=== PATIENT | male | born 1960 | race Hispanic/Latino ===

== ENCOUNTER 2018-03-01 06:10 | Inpatient (IN) | payer OTHER ==
[2018-02-24 08:09] VITALS: BMI 41.3
[2018-03-01 07:18] LABS: HEMOGLOBIN 13.7 g/dL (12.0-18.0); MEAN CELL VOLUME 89.2 fl (80.0-94.0); MEAN CORPUSCULAR HEMOGLOBIN 30.2 pg (27.0-31.0); MEAN CORPUSCULAR HGB CONC 33.8 g/dL (33.0-37.0); RBC 4.53 Mil/uL (4.40-5.90); RED CELL DISTRIBUTION WIDTH 13.7 % (11.5-14.5); WHITE BLOOD COUNT 8.7 K/uL (4.8-10.8)
[2018-03-01] MEDS ORDERED: Rocuronium 10 mg/ml (5 ml) ONE ×2 (07:42→09:37)
[2018-03-01] MEDS ORDERED: Lidocaine 4% (Laryng-O-Jet) Kit MM ONE (07:42)
[2018-03-01] MEDS ORDERED: Propofol 10 mg/ml Inj (20 ML) ONE (07:42)
[2018-03-01] MEDS ORDERED: Midazolam 2 MG/2 ML VIAL ONE (07:42)
[2018-03-01] MEDS ORDERED: Neostigmine 1:1000 (1 mg/ml) Inj ONE (07:42)
[2018-03-01] MEDS ORDERED: Succinylcholine 200 mg/10 ml Inj IV ONE (07:42)
[2018-03-01] MEDS ORDERED: Lidocaine 1% 5ml Abboject ONE (07:43)
[2018-03-01] MEDS ORDERED: Sodium Chloride 0.9% 20 ML IV ONE (08:05)
[2018-03-01] MEDS ORDERED: EPINEPHrine 1 mg/ml (1:1000) Inj ONE (08:05)
[2018-03-01] MEDS ORDERED: ceFAZolin IV 1 gm in Dextrose 2 GM/100 ML BAG IVPB ONE (08:05)
[2018-03-01] MEDS ORDERED: Bupivacaine HCl 0.5% PF (30 ml) Inj ONE (08:12)
[2018-03-01] MEDS ORDERED: GELATIN SPONGE,ABSORB/PORCINE 1 EACH SPONGE TP ONE (08:13)
[2018-03-01] MEDS ORDERED: Bacitracin Ointment 30 GM TUBE ONE (08:13)
[2018-03-01] MEDS ORDERED: Thrombin Topical 5,000 Int Units Spray Kit ONE (08:13)
[2018-03-01] MEDS ORDERED: Lactated Ringer's 1,000 ML IV ONE ×3 (08:29→10:05)
[2018-03-01] MEDS ORDERED: oxyCODONE 10 mg ER Tab (oxyCONTIN) PO ONE ×2 (08:29→09:00)
[2018-03-01] MEDS ORDERED: Acetaminophen IV IVPB ONE (08:48)
[2018-03-01 08:52] LABS: BLOOD UREA NITROGEN 16 mg/dl (9-20); GFR NON-AFRICAN AMERICAN > 60
[2018-03-01] MEDS ORDERED: Phenylephrine 10 mg/ml Inj ONE (09:43)
[2018-03-01] MEDS ORDERED: Sodium Chloride 0.9% 10 ML IV ONE (10:09)
[2018-03-01] MEDS ORDERED: ePHEDrine 50 mg/ml Inj ONE (10:09)
[2018-03-01] MEDS ORDERED: Morphine 1 mg/ml preservative-free Inj(Duramorph) ONE (10:53)
[2018-03-01] MEDS ORDERED: Morphine 1 mg/ml preservative-free Inj(Duramorph) IV ONE (10:59)
[2018-03-01] MEDS ORDERED: EPINEPHrine 1 mg/ml (1:1000) Inj IV ONE (10:59)
[2018-03-01] MEDS ORDERED: Sodium Chloride 0.9% Inj (10mL) IV ONE (10:59)
[2018-03-01] MEDS ORDERED: Bupivacaine 0.5% Inj(30mL) IJ ONE (10:59)
[2018-03-01] MEDS ORDERED: HYDROmorphone 0.5 mg/0.5 ml ISec IVP PRN (12:07)
--- NOTE | 2018-03-01 12:09 | PCM.SURG1 ---
Surgeon's Initial Post Op Note - Surgeon's Notes Surgeon: Harvey Hartman MD Forensic Science Examiner: Debora Jose PA-C; Ronnie Swift PA-C Type of Anesthesia: General Endo Pre-Operative Diagnosis: Right knee advanced OA Operative Findings: see op report Post-Operative Diagnosis: same as pre-op dx Operation Performed: RTKR Specimen/Specimens Removed: right knee bone and soft tissue Estimated Blood Loss: EBL {In ML}: 50 Date of Surgery/Procedure: 03/01/18 Time of Surgery/Procedure: 10:30
[2018-03-01] MEDS: Lactated Ringer's 1,000 ML IV SCH ×3 (14:05→23:00)
--- NOTE | 2018-03-01 14:47 | RAD ---
Date of service: 03/01/2018 PROCEDURE: Right Knee Radiographs. HISTORY: pre-op COMPARISON: Right knee radiographs 08/04/2010. FINDINGS: BONES: Patient is now seen to be status post right total knee replacement with hardware in good apparent position at the distal femur and proximal tibia. No acute fracture, subluxation or dislocation identified. Postoperative changes seen throughout the soft tissues a predominately anteriorly and laterally. Skin mariana are noted anteriorly. No acute fracture, subluxation or dislocation identified. JOINTS: As above. JOINT EFFUSION: As above. OTHER FINDINGS: None. IMPRESSION: Postoperative changes are identified in soft tissues locally surrounding the knee status post right total knee replacement as discussed above.
[2018-03-01] MEDS ORDERED: ceFAZolin IV 1 gm in Dextrose 1 GM/50 ML BAG IVPB ONE ×2 (15:00→21:00)
[2018-03-01] MEDS: oxyCODONE 10 mg ER Tab (oxyCONTIN) PO SCH (20:24)
[2018-03-01] MEDS: oxyCODONE 5 mg Immediate Release Tab PO PRN (21:54)
--- NOTE | 2018-03-01 22:28 | OP ---
PROCEDURE DATE: 03/01/2018 PREOPERATIVE DIAGNOSIS: Right knee osteoarthritis. POSTOPERATIVE DIAGNOSIS: Right knee osteoarthritis. PROCEDURE: Right total knee replacement. IMPLANTS SIZE: [employer] size 4 femur, size 4 tibial baseplate, 11 mm polyethylene insert, 32 mm patella. SURGEON: Harvey Hartman MD FRONT MAN: Debora Jose PA-C TYPE OF ANESTHESIA: General. ESTIMATED BLOOD LOSS: 100 mL. COMPLICATIONS: None. HISTORY: The patient with prolonged history of right knee pain progressively getting worse despite extensive conservative management, which included activity modification, injections, anti-inflammatory modification and physical therapy. X-rays had revealed advanced arthritis. Patient was indicated for total knee replacement due to continued pain and limited mobility. I had a detailed discussion with the patient in the office explaining the nature of the surgery, alternatives of surgery, risks and benefits, rehabilitation protocol and surgical markings. Risks of surgery include but not limited to continued pain, lack of motion, infection, vascular injury, DVT / PE, nerve injury including peroneal nerve dysfunction, reflex sympathetic dystrophy, compartment syndrome, unforeseen medical and/or anesthesia complications, limb loss, and even . The patient expressed an understanding of the risks and possible benefits of the procedure, and is also aware of the alternatives to surgery. DESCRIPTION OF PROCEDURE: On the day of the surgery, the patient was admitted to pre-operative holding area. A laterality sheet was completed confirming the correct operative site. The correct surgical knee was marked in the holding area and informed consent was signed from the patient. Once again, I reviewed the risks and benefits of the surgery with the patient in detail. These risks include but are not limited to continued pain, lack of motion, infection, vascular injury, DVT / PE, nerve injury including peroneal nerve dysfunction, reflex sympathetic dystrophy, symptomatic hardware, need for further procedure and surgeries, instability, iatrogenic fractures, compartment syndrome, unforeseen medical and/or anesthesia complications, limb loss, and even . The patient expressed an understanding of the risks and possible benefits of the procedure, also aware of the alternatives to surgery and signed the informed consent. The patient was transported to the operating room and placed in the supine position, general anesthesia was obtained. Exam under anesthesia revealed effusion trace, range of motion is 0 to 120, stable to varus and valgus stress. A padded tourniquet was applied to patient's operative thigh and appropriate prophylactic antibiotics were given. The operative leg was draped and prepped in standard sterile manner. Timeout was completed, confirming patient's right knee to be the correct operative site. Using an Esmarch, the extremity was exsanguinated and tourniquet was inflated to 350 mmHg. The surgical incision markings were made using patella border, tibial tubercle, patella and quadriceps tendon. Using a 10 blade, a midline incision was made. Skin dissection was taken until the prepatellar fascia was identified and the corners of the patellar tendon were marked for proper closure at the end of the procedure. Using a fresh 10 blade, a medial parapatellar arthrotomy was performed. The knee was exposed in the standard manner. The deep MCL was elevated for exposure, medial and lateral menisci were removed, ACL and PCL were also transected. The tibia was subluxed anteriorly. Planned tibial cut was made with power saw, using extra-medullary guide, perpendicular to mechanical axis of the tibia. After the cut was made, the alignment was also checked and was found to be appropriate. Tibial cut surface was measured with trial base plate and it was noted that size 4 tibial baseplate was provide sufficient coverage without overhang. Tibial component was externally rotated and marked. Next, the knee was placed into 90 degrees of flexion. A drill hole was made within the femoral notch anterior to PCL insertion for placement of intramedullary femoral brandon. Intramedullary femoral brandon was inserted within the femoral canal and planned distal femoral cut was made. After the cut, knee was brought into full extension. Spacer blocks were used to check the extension balancing both in full extension and 30 degrees of flexion. It was found that 11 mm trial spacer block allowed full extension with symmetric varus and valgus balancing. Next we proceed with Patella resurfacing. Patella width was found to 29 mm. Using the free-hand technique the arthritic patella surface was resected. Patella was sized using the guide and it was noted that 32 mm Patella dome button would be appropriate for the patient. Next the size of femoral component was determined using the posterior referencing guide. It was noted that a size 4 femur would be appropriate for this patient without causing any significant notching. A 4 x 1 cutting block was placed and flexion gap balancing was checked. The flexion gap was found to be symmetric to the extension gap. Anterior and posterior condyle, anterior and posterior chamfer cuts were made. Next, appropriate size box cut for femoral component was prepared using the guide. The femoral trial component was impacted onto the distal femur. Appropriate size tibial trial component was also placed on the cut surface of the tibia. Using the drill and punch, keel for tibial implant was prepared. Trial tibial tray was secured onto the tibia using pins. Different size trial polyethylene inserts were secured on to the trial tibial tray to critically assess the following parameters: Full range of motion, extension and flexion gap balancing, mid-flexion stability, anterior and posterior drawer, and patellar tracking. All parameter were found to be satisfactory with 11 mm polyethylene insert. All the trial components were removed. Implants were opened on the back table. Cement was mixed and we proceed with cement fixation of the implants. Tibial tray, femoral component and patellar dome button were secured with cement. Polyethylene insert was secured onto the tibial tray using locking mechanism. The knee was reduced and brought into full extension. Cement was allowed to harden until final component fixation. Knee was taken through the final range of motion for stability testing, and found to be satisfactory. A 60 mL of custom cocktail mixture was injected into posterior capsule, MCL, LCL, quadriceps tendon, and patellar tendon. Wound was copiously irrigated with sterile antibiotic solution using pulse lavage. Arthrotomy was closed using heavy suture and wound was closed in standard manner. Patient was extubated, transferred to stretcher and taken to the recovery room. Post-operative instructions were provided, physical therapy consult was requested along with DVT prophylaxis and appropriate pain medications. During this procedure, I was assisted by Debora Jose PA-C,who assisted in positioning the patient on the operating room table as well as transferring the patient from the operating room table to the recovery room stretcher. In addition, Debora Jose PA-C, assisted me during the actual operative procedure by positioning, protecting critical neurovascular structures, exposure of the joint, and proper positioning of the implants. The presence of Debora Jose PA-C, as my operative training assistant was medically necessary to ensure the utmost safety of the patient in the pre, intra-, and post-operative periods. Harvey Hartman MD
[2018-03-02] MEDS: oxyCODONE 5 mg Immediate Release Tab PO PRN ×3 (03:05→14:29)
[2018-03-02 06:33] LABS: BASO # 0.1 K/uL (0.0-0.2); BASO % 0.6 % (0.0-2.0); EOS # 0.5 K/uL (0.0-0.7); EOS % 4.7 % (0.0-4.0); HEMOGLOBIN 12.1 g/dL (12.0-18.0); LYMPH # 2.6 K/uL (1.0-4.3); LYMPH % 22.2 % (20.0-40.0); MEAN CELL VOLUME 88.2 fl (80.0-94.0); MEAN CORPUSCULAR HEMOGLOBIN 30.2 pg (27.0-31.0); MEAN CORPUSCULAR HGB CONC 34.3 g/dL (33.0-37.0); MEAN PLATELET VOLUME 8.3 fl (7.2-11.7); MONO # 1.2 K/uL (0.0-0.8); MONO % 10.4 % (0.0-10.0); NEUT # 7.2 K/uL (1.8-7.0); NEUT % 62.1 % (50.0-75.0); RBC 4.02 Mil/uL (4.40-5.90); RED CELL DISTRIBUTION WIDTH 13.8 % (11.5-14.5); WHITE BLOOD COUNT 11.5 K/uL (4.8-10.8)
[2018-03-02 06:35] LABS: BLOOD UREA NITROGEN 19 mg/dl (9-20); CALCIUM 8.1 mg/dL (8.4-10.2); GFR NON-AFRICAN AMERICAN > 60
[2018-03-02] MEDS: Enoxaparin 40 mg Syringe SC SCH (08:06)
--- NOTE | 2018-03-02 09:06 | CP.PCM.PN ---
Subjective - Date & Time of Evaluation Date of Evaluation: 03/02/18 Time of Evaluation: 08:30 - Subjective Subjective: 57 yo M s/p RTKR POD#1 Pt seen and examined bedside, comfortable in bed, NAD Pt c/o mild right knee pain Pt denies SOB, chest pain, N/V/D, numbness/tingling RLE Objective - Vital Signs/Intake and Output Vital Signs (last 24 hours): Temp Pulse Resp BP Pulse Ox 98.9 F 75 19 131/79 94 L 03/02/18 08:06 03/02/18 08:06 03/02/18 08:06 03/02/18 08:06 03/02/18 08:06 - Medications Medications: Current Medications Acetaminophen (Tylenol 325mg Tab) 325 mg PO Q4 PRN PRN Reason: pain1-3 Celecoxib (Celebrex) 200 mg PO Q12 [facility] Last Admin: 03/02/18 08:07 Dose: 200 mg Docusate Sodium (Colace) 100 mg PO BID [facility] Last Admin: 03/02/18 08:06 Dose: 100 mg Enoxaparin Sodium (Lovenox) 40 mg SC DAILY [facility] PRN Reason: Protocol Last Admin: 03/02/18 08:06 Dose: 40 mg Home Med (Liraglutide [Victoza 2-Blaine]) 0.6 mg IM DAILY [facility] Lactated Ringer's (Lactated Ringer's) 1,000 mls @ 100 mls/hr IV .Q10H [facility] Last Admin: 03/01/18 23:00 Dose: Not Given Ketorolac Tromethamine (Toradol) 15 mg IVP Q8 [facility] Stop: 03/03/18 18:00 Last Admin: 03/02/18 01:31 Dose: 15 mg Levothyroxine Sodium (Levothroid) 137 mcg PO DAILY@0630 [facility] Last Admin: 03/02/18 06:37 Dose: 137 mcg Metformin HCl (Glucophage) 500 mg PO DAILY [facility] Last Admin: 03/02/18 08:07 Dose: 500 mg Oxycodone HCl (Oxycodone Immediate Release Tab) 5 mg PO Q4 PRN PRN Reason: pain4-6 Last Admin: 03/02/18 06:36 Dose: 5 mg Oxycodone HCl (Oxycontin Extended Release Tab) 20 mg PO Q12 [facility] Stop: 03/05/18 09:01 Telmisartan (Micardis) 40 mg PO DAILY [facility] - Labs Labs: 03/02/18 05:29 03/02/18 05:29 - Constitutional Appears: Well, No Acute Distress - Respiratory Exam Respiratory Exam: Clear to Ausculation Bilateral, NORMAL BREATHING PATTERN - Cardiovascular Exam Cardiovascular Exam: REGULAR RHYTHM, RRR - Extremities Exam Additional comments: RLE: Knee dressing C/D/I Calves soft and nontender b/l N/V intact distally Normal ROM at right ankle, no foot drop DP and PT pulses wnl Assessment and Plan - Assessment and Plan (Free Text) Assessment: 57 yo M s/p RTKR POD#1 Plan: Pain Control DVT ppx- SCD b/l LE; start lovenox today PT/OT- WBAT RLE Incentive Spirometer F/U daily labs Will follow Discussed with Dr. Hartman
[2018-03-02] MEDS: oxyCODONE 10 mg ER Tab (oxyCONTIN) PO SCH ×3 (09:15→20:32)
--- NOTE | 2018-03-02 16:38 | CP.PCM.HP ---
History of Present Illness - History of Present Illness History of Present Illness: pt admitted s/p r tkr. at present,comfortable, no f/c, n/v/d. distal pms intact. bw noted. for ezequiel tomorrow. Present on Admission - Present on Admission Any Indicators Present on Admission: Yes History of Uncontrolled Diabetes: Yes Review of Systems - Musculoskeletal Musculoskeletal: As Per HPI, Arthralgias Past Patient History - Past Medical History & Family History Past Medical History?: Yes - Past Social History Smoking Status: Never Smoked - CARDIAC Hx Cardiac Disorders: Yes Hx Hypertension: Yes - PULMONARY Hx Respiratory Disorders: No - NEUROLOGICAL Hx Neurological Disorder: No - HEENT Hx HEENT Problems: No - RENAL Hx Chronic Kidney Disease: No - ENDOCRINE/METABOLIC Hx Endocrine Disorders: Yes Hx Diabetes Mellitus Type 2: Yes - HEMATOLOGICAL/ONCOLOGICAL Hx Blood Disorders: No - INTEGUMENTARY Hx Dermatological Problems: No - MUSCULOSKELETAL/RHEUMATOLOGICAL Hx Musculoskeletal Disorders: No - GASTROINTESTINAL Hx Gastrointestinal Disorders: No - GENITOURINARY/GYNECOLOGICAL Hx Genitourinary Disorders: No - PSYCHIATRIC Hx Psychophysiologic Disorder: No - SURGICAL HISTORY Hx Surgeries: Yes Hx Herniorrhaphy: Yes - ANESTHESIA Hx Anesthesia: Yes Hx Anesthesia Reactions: No Has any member of the family had a problem w/ anesthesia?: No Meds Allergies/Adverse Reactions: Allergies Allergy/AdvReac Type Severity Reaction Status Date / Time No Known Allergies Allergy Verified 02/24/18 08:08 Physical Exam - Constitutional Appears: Well, Non-toxic, No Acute Distress - Head Exam Head Exam: ATRAUMATIC, NORMAL INSPECTION, NORMOCEPHALIC - Eye Exam Eye Exam: EOMI, Normal appearance, PERRL Pupil Exam: NORMAL ACCOMODATION, PERRL - ENT Exam ENT Exam: Mucous Membranes Moist, Normal Exam - Neck Exam Neck exam: Positive for: Normal Inspection - Respiratory Exam Respiratory Exam: Clear to Auscultation Bilateral, NORMAL BREATHING PATTERN - Cardiovascular Exam Cardiovascular Exam: REGULAR RHYTHM, RRR, +S1, +S2 - GI/Abdominal Exam GI & Abdominal Exam: Normal Bowel Sounds, Soft. absent: Tenderness - Extremities Exam Extremities exam: Positive for: full ROM, normal capillary refill, normal inspection, tenderness, pedal pulses present Additional comments: r knee - Back Exam Back exam: NORMAL INSPECTION - Neurological Exam Neurological exam: Alert, CN II-XII Intact, Normal Gait, Oriented x3, Reflexes Normal - Psychiatric Exam Psychiatric exam: Normal Affect, Normal Mood - Skin Skin Exam: Dry, Intact, Normal Color, Warm Results - Vital Signs Recent Vital Signs: Last Vital Signs Temp 98.4 F 03/02/18 16:22 Pulse 79 03/02/18 16:22 Resp 18 03/02/18 16:22 BP 137/82 03/02/18 16:22 Pulse Ox 94 L 03/02/18 16:22 - Labs Result Diagrams: 03/02/18 05:29 03/02/18 05:29 Labs: Laboratory Results - last 24 hr 03/02/18 03/02/18 05:29 05:29 WBC 11.5 H RBC 4.02 L Hgb 12.1 Hct 35.4 MCV 88.2 MCH 30.2 MCHC 34.3 RDW 13.8 Plt Count 246 MPV 8.3 Neut % (Auto) 62.1 Lymph % (Auto) 22.2 Labette % (Auto) 10.4 H Eos % (Auto) 4.7 H Baso % (Auto) 0.6 Neut # (Auto) 7.2 H Lymph # (Auto) 2.6 Labette # (Auto) 1.2 H Eos # (Auto) 0.5 Baso # (Auto) 0.1 Sodium 134 Potassium 4.2 Chloride 100 Carbon Dioxide 30 Anion Gap 8 L BUN 19 Creatinine 0.9 Est GFR ( Amer) > 60 Est GFR (Non-Af Amer) > 60 Random Glucose 133 H Calcium 8.1 L Assessment & Plan (1) Knee osteoarthritis Assessment and Plan: s/p tkr, pain control ortho pt/ot ezequiel Status: Acute (2) DVT prophylaxis Assessment and Plan: scd adn ae hose ambulation lovenox Status: Acute (3) Diabetes type 2, uncontrolled Assessment and Plan: riss, home meds, fsbg Status: Acute Decision To Admit - Pt Status Changed To: Hospital Disposition Of: Inpatient - Admit Certification Admit to Inpatient:: After my assessment, the patient will require hospitalization for at least two midnights. This is because of the severity of symptoms shown, intensity of services needed, and/or the medical risk in this patient being treated as an outpatient. - . Bed Request Type: Med/Surg Admitting Physician: Toni Stone
[2018-03-02 23:51] VITALS: O2SAT 95
[2018-03-03 07:05] LABS: BASO # 0.1 K/uL (0.0-0.2); BASO % 0.6 % (0.0-2.0); EOS # 0.7 K/uL (0.0-0.7); EOS % 6.8 % (0.0-4.0); HEMOGLOBIN 11.8 g/dL (12.0-18.0); LYMPH # 2.1 K/uL (1.0-4.3); LYMPH % 20.5 % (20.0-40.0); MEAN CELL VOLUME 88.8 fl (80.0-94.0); MEAN CORPUSCULAR HEMOGLOBIN 30.4 pg (27.0-31.0); MEAN CORPUSCULAR HGB CONC 34.2 g/dL (33.0-37.0); MEAN PLATELET VOLUME 8.2 fl (7.2-11.7); MONO # 1.1 K/uL (0.0-0.8); MONO % 11.2 % (0.0-10.0); NEUT # 6.1 K/uL (1.8-7.0); NEUT % 60.9 % (50.0-75.0); RBC 3.87 Mil/uL (4.40-5.90); RED CELL DISTRIBUTION WIDTH 13.9 % (11.5-14.5)
[2018-03-03 07:28] LABS: BLOOD UREA NITROGEN 14 mg/dl (9-20); CALCIUM 8.5 mg/dL (8.4-10.2); GFR NON-AFRICAN AMERICAN > 60
[2018-03-03 07:57] VITALS: BP 137/69; PULSE 71; RESP 19; TEMP 97.8
[2018-03-03] MEDS: Enoxaparin 40 mg Syringe SC SCH (08:12)
[2018-03-03] MEDS: oxyCODONE 10 mg ER Tab (oxyCONTIN) PO SCH (08:15)
--- NOTE | 2018-03-03 08:49 | CP.PCM.PN ---
Subjective - Date & Time of Evaluation Date of Evaluation: 03/03/18 Time of Evaluation: 08:48 - Subjective Subjective: pt doing well. pain controlled. bw noted. for ezequiel today. no f/c, n/v/d. Objective - Vital Signs/Intake and Output Vital Signs (last 24 hours): Temp Pulse Resp BP Pulse Ox 97.8 F 71 19 137/69 95 03/03/18 07:56 03/03/18 08:12 03/03/18 07:56 03/03/18 08:12 03/03/18 07:56 - Medications Medications: Current Medications Acetaminophen (Tylenol 325mg Tab) 325 mg PO Q4 PRN PRN Reason: pain1-3 Celecoxib (Celebrex) 200 mg PO Q12 [facility] Last Admin: 03/03/18 08:12 Dose: 200 mg Docusate Sodium (Colace) 100 mg PO BID [facility] Last Admin: 03/03/18 08:11 Dose: 100 mg Enoxaparin Sodium (Lovenox) 40 mg SC DAILY [facility] PRN Reason: Protocol Last Admin: 03/03/18 08:12 Dose: 40 mg Home Med (Liraglutide [Victoza 2-Blaine]) 0.6 mg IM DAILY [facility] Lactated Ringer's (Lactated Ringer's) 1,000 mls @ 100 mls/hr IV .Q10H [facility] Last Admin: 03/01/18 23:00 Dose: Not Given Ketorolac Tromethamine (Toradol) 15 mg IVP Q8 [facility] Stop: 03/03/18 18:00 Last Admin: 03/03/18 08:13 Dose: 15 mg Levothyroxine Sodium (Levothroid) 137 mcg PO DAILY@0630 [facility] Last Admin: 03/03/18 07:10 Dose: 137 mcg Losartan Potassium (Cozaar) 50 mg PO DAILY [facility] Last Admin: 03/03/18 08:12 Dose: 50 mg Metformin HCl (Glucophage) 500 mg PO DAILY [facility] Last Admin: 03/03/18 08:12 Dose: 500 mg Oxycodone HCl (Oxycodone Immediate Release Tab) 5 mg PO Q4 PRN PRN Reason: pain4-6 Last Admin: 03/02/18 14:29 Dose: 5 mg Oxycodone HCl (Oxycontin Extended Release Tab) 20 mg PO Q12 [facility] Stop: 03/05/18 09:01 Last Admin: 03/03/18 08:15 Dose: 20 mg - Labs Labs: 03/03/18 05:55 03/03/18 05:55 - Constitutional Appears: Well, Non-toxic, No Acute Distress - Head Exam Head Exam: ATRAUMATIC, NORMAL INSPECTION, NORMOCEPHALIC - Eye Exam Eye Exam: EOMI, Normal appearance, PERRL Pupil Exam: NORMAL ACCOMODATION, PERRL - ENT Exam ENT Exam: Mucous Membranes Moist, Normal Exam - Neck Exam Neck Exam: Full ROM, Normal Inspection. absent: Lymphadenopathy - Respiratory Exam Respiratory Exam: Clear to Ausculation Bilateral, NORMAL BREATHING PATTERN - Cardiovascular Exam Cardiovascular Exam: REGULAR RHYTHM, RRR, +S1, +S2. absent: Murmur - GI/Abdominal Exam GI & Abdominal Exam: Soft, Normal Bowel Sounds. absent: Tenderness - Extremities Exam Extremities Exam: Full ROM, Normal Capillary Refill, Normal Inspection, Tenderness. absent: Joint Swelling, Pedal Edema Additional comments: r knee dsg c/d/i - Back Exam Back Exam: NORMAL INSPECTION - Neurological Exam Neurological Exam: Abnormal Gait, Alert, Awake, CN II-XII Intact, Oriented x3 - Psychiatric Exam Psychiatric exam: Normal Affect, Normal Mood - Skin Skin Exam: Dry, Intact, Normal Color, Warm Assessment and Plan (1) Knee osteoarthritis Status: Acute (2) DVT prophylaxis Status: Acute (3) Diabetes type 2, uncontrolled Status: Acute - Assessment and Plan (Free Text) Assessment: (1) Knee osteoarthritis Assessment and Plan: s/p tkr, pain control ortho pt/ot ezequiel today Status: Acute (2) DVT prophylaxis Assessment and Plan: scd adn ae hose ambulation lovenox Status: Acute (3) Diabetes type 2, uncontrolled Assessment and Plan: riss, home meds, fsbg Status: Acute
--- NOTE | 2018-03-03 13:58 | CP.PCM.PN ---
Subjective - Date & Time of Evaluation Date of Evaluation: 03/03/18 Time of Evaluation: 13:57 - Subjective Subjective: Patient states pain is well controlled. Getting better daily. Denies CP/SOB/ dizziness/numbness/tingling Objective - Vital Signs/Intake and Output Vital Signs (last 24 hours): Temp Pulse Resp BP Pulse Ox 97.8 F 71 19 137/69 95 03/03/18 07:56 03/03/18 08:12 03/03/18 07:56 03/03/18 08:12 03/03/18 07:56 - Labs Labs: 03/03/18 05:55 03/03/18 05:55 - Extremities Exam Additional comments: Right knee: dressing changed. Incision intact, scant sang drainage, no erythema , dry sterile dressing applied with keshia calves soft NT neg homans sensation intact +ROM ankle/toes +Dp/PT pulses Assessment and Plan (1) Primary osteoarthritis of right knee Assessment & Plan: POD#2 s/p right TKR ortho stable for d/c to rehab cont VTE proph with aspirin per Dr. Hartman f/u 10 days call for appt cont PT/OT WBAT d/w Dr. Hartman, agrees with above Status: Acute
== END 2018-03-03 12:41 | DRG 470 ==
LOC: H.OPSURG 06:10 → H.MEDSURG1 12:12
PROVIDERS: ADMIT Family Medicine; ATTEND Orthopaedic Surgery
PROC: 0SRC0J9 Replacement of Right Knee Joint with Synthetic Substitute, Cemented, Open Approach (ICD-10-PCS; principal; 2018-03-01 09:15)
DX: M17.11 Unilateral primary osteoarthritis, right knee (principal); E11.65 Type 2 diabetes mellitus with hyperglycemia; I10 Essential (primary) hypertension